=== PATIENT | female | born 1990 | race Caucasian/White ===

== ENCOUNTER 2016-12-27 08:55 | Emergency (ER) | payer OTHER ==
[~2016-12-27] VITALS: Ht 167.6 cm; Wt 109.0 kg
[~2016-12-27 08:55] MED LIST: IBUP800T23 PO; LEXA10TA PO
[2016-12-27 09:07] VITALS: BP 144/98; PULSE 69; RESP 18; TEMP 98; O2SAT 100
[2016-12-27] MEDS ORDERED: SODIUM CHLOR 0.9% 1000 ML INJ 1,000 ML IV ONE (09:38)
[2016-12-27] MEDS ORDERED: PROCHLORPERAZINE INJ 10 MG/2 ML VIAL IVP ONE (09:45)
[2016-12-27] MEDS ORDERED: MORPHINE SULFATE 4 MG/ML INJ IV PUSH ONE ×2 (09:45→13:00)
[2016-12-27] MEDS ORDERED: diphenhydrAMINE HCL 50 MG/ML VIAL IVP ONE (09:45)
--- NOTE | 2016-12-27 09:48 | PD ---
HPI Chief Complaint: Headache Time Seen by Provider: 09:31 Travel History International Travel<30 days: No Contact w/Intl Traveler<30days: No Traveled to known affect area: No History of Present Illness HPI The patient is a 26-year-old female who presents emergency department for headache. Patient states she awakened this morning at 6 AM with a headache that is located in the right temporal area, sharp, stabbing, radiates to the right ear down the right neck, is associated with mild nausea. The patient denies any subsequent vomiting. She does complain of blurry vision mostly on the left thigh as well as some numbness and tingling to the left aspect of the face. The patient states when she awakened this morning she had difficulty speaking and difficulty waking up her . The patient states she then became somewhat panicked and presents to the emergency department. The patient denies any weakness or numbness of the left arm or left leg, however, does note the numbness continues of left aspect of the face. The patient denies any difficulty with neck movements and denies any subsequent fever, chills, or sweats. The patient does have a history of anxiety and depression. The patient states she does have a history of migraines since she was a teenager, would occur approximately every 3 months with her menstrual cycle, but has not been a problem as of recently. [facility] Past Medical History Anxiety: Yes Depression: Yes Migraines: Yes Tetanus Vaccination: < 5 Years Influenza Vaccination: No ?: Not LMP: 12/15/2016 : 2 Para: 3 Miscarriage: 1 Past Surgical History Section: Yes (x 1 twins) Gynecologic Surgery: Yes (Embryo tx) Social History Alcohol Use: No (seldom) Tobacco Use: No Substance Use: No Allergies-Medications (Allergen,Severity, Reaction): Coded Allergies: Cipro (Verified Allergy, Severe, Nausea/Vomiting, 12/27/16) [place] (Verified Allergy, Severe, EMESIS, 12/27/16) Reported Meds & Prescriptions Reported Meds & Active Scripts Active No Active Prescriptions or Reported Medications Review of Systems Except as stated in HPI: all other systems reviewed are Neg General / Constitutional: No: Fever HENT: Positive: Headaches, Lightheadedness, Neck Pain, No: Neck Stiffness Cardiovascular: No: Chest Pain or Discomfort Respiratory: No: Shortness of Breath Gastrointestinal: Positive: Nausea, No: Vomiting, Abdominal Pain Neurologic: Positive: Headache, Paresthesia, Sensory Disturbance, No: Change in Mentation Physical Exam Narrative GENERAL: Awake, alert, pleasant 26 year-old female appears her stated age and appears somewhat anxious. The patient was initially examined in a darkened room. SKIN: Warm and dry. HEAD: Atraumatic. Normocephalic. EYES: Pupils equal and round. Pupils are 5 mm bilateral and reactive. EOMs are intact. Patient is able to see fingers at a distance of 2 feet without difficulty. ENT: No nasal bleeding or discharge. Mucous membranes pink and moist. NECK: Trachea midline. No JVD. No meningeal signs. CARDIOVASCULAR: Regular rate and rhythm. No murmur appreciated. RESPIRATORY: No accessory muscle use. Clear to auscultation. Breath sounds equal bilaterally. GASTROINTESTINAL: Abdomen soft, non-tender, nondistended. Hepatic and splenic margins not palpable. MUSCULOSKELETAL: No obvious deformities. No clubbing. No cyanosis. No edema. NEUROLOGICAL: Awake and alert. Sensation is symmetric bilaterally in the V1, V2 , V3 distribution, however, decreased to light touch over the V2 and V3 distribution. No drift of the upper or lower extremities. Alert and oriented 4. PSYCHIATRIC: Anxious, insight and judgment appear normal. Data Data Last Documented VS Vital Signs Date Time Temp Pulse Resp B/P Pulse Ox O2 Delivery O2 Flow Rate FiO2 12/27/16 11:20 64 16 Room Air 12/27/16 11:05 111/65 100 12/27/16 09:07 98.0 Orders Basic Metabolic Panel (Bmp) (12/27/16 09:38) Ct Brain W/O Iv Contrast(Rout) (12/27/16 09:38) Ecg Monitoring (12/27/16 09:38) Iv Access Insert/Monitor (12/27/16 09:38) Oximetry (12/27/16 09:38) Sodium Chloride 0.9% Flush (Ns Flush) (12/27/16 09:45) Prochlorperazine Inj (Compazine Inj) (12/27/16 09:45) Diphenhydramine Inj (Benadryl Inj) (12/27/16 09:45) Sodium Chlor 0.9% 1000 Ml Inj (Ns 1000 M (12/27/16 09:38) Morphine Inj (Morphine Inj) (12/27/16 09:45) Mri Brain W&W/O Contrast (12/27/16 ) Mrv Brain W/Wo Contrast (12/27/16 ) Complete Blood Count With Diff (12/27/16 09:38) Act Partial Throm Time (Ptt) (12/27/16 09:38) Prothrombin Time / Inr (Pt) (12/27/16 09:38) Ed Urine Pregnancytest Poc (12/27/16 10:11) Ketorolac Inj (Toradol Inj) (12/27/16 12:45) Morphine Inj (Morphine Inj) (12/27/16 13:00) Ondansetron Inj (Zofran Inj) (12/27/16 13:00) Labs Laboratory Tests Test 12/27/16 10:25 White Blood Count 6.1 TH/MM3 Red Blood Count 5.11 MIL/MM3 Hemoglobin 13.5 GM/DL Hematocrit 40.5 % Mean Corpuscular Volume 79.1 FL Mean Corpuscular Hemoglobin 26.4 PG Mean Corpuscular Hemoglobin 33.3 % Concent Red Cell Distribution Width 13.8 % Platelet Count 310 TH/MM3 Mean Platelet Volume 8.3 FL Neutrophils (%) (Auto) 50.9 % Lymphocytes (%) (Auto) 34.8 % Monocytes (%) (Auto) 7.9 % Eosinophils (%) (Auto) 3.8 % Basophils (%) (Auto) 2.6 % Neutrophils # (Auto) 3.1 TH/MM3 Lymphocytes # (Auto) 2.1 TH/MM3 Monocytes # (Auto) 0.5 TH/MM3 Eosinophils # (Auto) 0.2 TH/MM3 Basophils # (Auto) 0.2 TH/MM3 CBC Comment DIFF FINAL Differential Comment Prothrombin Time 10.4 SEC Prothromb Time International 0.9 RATIO Ratio Activated Partial 26.5 SEC Thromboplast Time Sodium Level 142 MEQ/L Potassium Level 4.3 MEQ/L Chloride Level 106 MEQ/L Carbon Dioxide Level 28.2 MEQ/L Anion Gap 8 MEQ/L Blood Urea Nitrogen 16 MG/DL Creatinine 1.10 MG/DL Estimat Glomerular Filtration 60 ML/MIN Rate Random Glucose 103 MG/DL Calcium Level 8.7 MG/DL MDM Medical Decision Making Medical Screen Exam Complete: Yes Emergency Medical Condition: Yes Medical Record Reviewed: Yes Interpretation(s) Laboratory Tests Test 12/27/16 10:25 White Blood Count 6.1 TH/MM3 Red Blood Count 5.11 MIL/MM3 Hemoglobin 13.5 GM/DL Hematocrit 40.5 % Mean Corpuscular Volume 79.1 FL Mean Corpuscular Hemoglobin 26.4 PG Mean Corpuscular Hemoglobin 33.3 % Concent Red Cell Distribution Width 13.8 % Platelet Count 310 TH/MM3 Mean Platelet Volume 8.3 FL Neutrophils (%) (Auto) 50.9 % Lymphocytes (%) (Auto) 34.8 % Monocytes (%) (Auto) 7.9 % Eosinophils (%) (Auto) 3.8 % Basophils (%) (Auto) 2.6 % Neutrophils # (Auto) 3.1 TH/MM3 Lymphocytes # (Auto) 2.1 TH/MM3 Monocytes # (Auto) 0.5 TH/MM3 Eosinophils # (Auto) 0.2 TH/MM3 Basophils # (Auto) 0.2 TH/MM3 CBC Comment DIFF FINAL Differential Comment Prothrombin Time 10.4 SEC Prothromb Time International 0.9 RATIO Ratio Activated Partial 26.5 SEC Thromboplast Time Sodium Level 142 MEQ/L Potassium Level 4.3 MEQ/L Chloride Level 106 MEQ/L Carbon Dioxide Level 28.2 MEQ/L Anion Gap 8 MEQ/L Blood Urea Nitrogen 16 MG/DL Creatinine 1.10 MG/DL Estimat Glomerular Filtration 60 ML/MIN Rate Random Glucose 103 MG/DL Calcium Level 8.7 MG/DL MRI the brain reveals negative MRI of the brain. No etiology for the patient's headaches. No evidence for sinus thrombosis. CT of the brain reveals no acute disease. MRV is negative for thrombosis. Etiology for headache is not apparent. Differential Diagnosis Differential diagnosis includes complicated migraine, intracranial hemorrhage, intracranial tumor, venous sinus thrombosis, dural thrombosis, carotid dissection, tension headache, anxiety. Narrative Course IV was established, labs are drawn and sent, and the patient was placed on cardiac telemetry monitoring and continuous pulse oximetry monitoring. The patient was administered morphine, Compazine, Benadryl, and IV fluids. CT of the brain was ordered to rule out intracranial hemorrhage. MRI/MRV was ordered to rule out venous sinus thrombosis. Bedside UA test was negative. CT of the brain was negative. The patient was reevaluated at 11:05 AM, her headache had resolved and most of the numbness on the left face and left hand had resolved. MRI/MRV are negative, patient was reevaluated, she was asymptomatic. The patient is advised to follow-up with neurology, return if symptoms worsen or progress. Diagnosis Primary Impression: Complicated migraine Patient Instructions: General Instructions Additional Instructions: Please provide the patient a copy of her CT results, MRI results, and lab results at discharge. Follow-up with neurology. Return if symptoms worsen or progress. Med/Other Pt SpecificInfo: Prescription(s) given Scripts Bnrrocfsgx-Inbydggzltrqi-Uxymjkfu (Fioricet)50-300-40 Mg Cap1 Cap PO Q4H PRN ( HEADACHE) #12 CAP Ref 0 Prov:Sukh Canela MD 12/27/16 Disposition: 01 DISCHARGE HOME Condition: Stable Sukh Canela MD Dec 27, 2016 09:48
[2016-12-27 10:00] VITALS: BP 113/57; PULSE 63; RESP 16; O2SAT 97; O2SAT 99
[2016-12-27] MEDS: SODIUM CHLORIDE 0.9% FLUSH 5 ML FLUSH IVF PRN ×2 (10:28→14:00)
[2016-12-27 10:36] LABS: AUTOMATED NEUTROPHIL # 3.1 TH/MM3 (1.8-7.7); BASOPHIL # 0.2 TH/MM3 (0-0.2); BASOPHIL % 2.6 % (0.0-2.0); EOSINOPHIL # 0.2 TH/MM3 (0-0.4); EOSINOPHIL % 3.8 % (0.0-4.0); HEMATOCRIT 40.5 % (35.0-46.0); HEMO FLAGS DIFF FINAL; LYMPH % 34.8 % (9.0-44.0); LYMPHOCYTE # 2.1 TH/MM3 (1.0-4.8); MEAN CELL VOLUME 79.1 FL (80.0-100.0); MEAN CORPUSCULAR HEMOGLOBIN 26.4 PG (27.0-34.0); MEAN CORPUSCULAR HGB CONC 33.3 % (32.0-36.0); MONO % 7.9 % (0.0-8.0); NEUT % 50.9 % (16.0-70.0); PLATELET COUNT 310 TH/MM3 (150-450); RED BLOOD COUNT 5.11 MIL/MM3 (4.00-5.30); RED CELL DISTRIBUTION WIDTH 13.8 % (11.6-17.2); WHITE BLOOD COUNT 6.1 TH/MM3 (4.0-11.0)
[2016-12-27 10:41] LABS: POTASSIUM 4.3 MEQ/L (3.5-5.1)
[2016-12-27 10:45] LABS: BICARBONATE 28.2 MEQ/L (21.0-32.0)
[2016-12-27 10:47] LABS: APTT (PATIENT) 26.5 SEC (24.3-30.1); INTERNATIONAL NORMALIZED RATIO 0.9 RATIO; PROTHROMBIN TIME - PATIENT 10.4 SEC (9.8-11.6)
--- NOTE | 2016-12-27 10:56 | RADHPO ---
EXAM DATE/TIME: 12/27/2016 10:34 [facility] COMPARISON: No previous studies available for comparison. INDICATIONS : New onset right sided headache this morning, with left facial and upper extremity numbness. History o f migraine headaches. RADIATION DOSE: 58.93 CTDIvol (mGy) MEDICAL HISTORY : None SURGICAL HISTORY : section. ENCOUNTER: Initial ACUITY: 1 day PAIN SCALE: 8/10 LOCATION: Right cranial TECHNIQUE: Multiple contiguous axial images were obtained of the head. Using automated exposure control and adj ustment of the mA and/or kV according to patient size, radiation dose was kept as low as reasonably a chievable to obtain optimal diagnostic quality images. FINDINGS: CEREBRUM: The ventricles are normal for age. No evidence of midline shift, mass lesion, hemorrhage or acute in farction. No extra-axial fluid collections are seen. POSTERIOR FOSSA: The cerebellum and brainstem are intact. The 4th ventricle is midline. The cerebellopontine angle i s unremarkable. EXTRACRANIAL: The visualized portion of the orbits is intact. SKULL: The calvaria is intact. No evidence of skull fracture. CONCLUSION: No acute disease. Bradford Jesus MD on December 27, 2016 at 10:52 Board Certified Radiologist. This report was verified electronically.
[2016-12-27 11:05] VITALS: BP 111/65; PULSE 68; RESP 16; O2SAT 100
[2016-12-27 12:15] VITALS: BP 114/63; PULSE 62; RESP 16
[2016-12-27] MEDS ORDERED: KETOROLAC TROMETHAMINE 30 MG/ML (IVP) VIAL IV PUSH ONE (12:45)
[2016-12-27] MEDS ORDERED: ONDANSETRON HCL 4 MG/2 ML VIAL IV PUSH ONE (13:00)
--- NOTE | 2016-12-27 13:06 | RADHPO ---
EXAM DATE/TIME: 12/27/2016 12:19 [facility] COMPARISON: No previous studies available for comparison. INDICATIONS : Cephalgia. CONTRAST: 20 cc Omniscan (gadodiamide) IV MEDICAL HISTORY : None. SURGICAL HISTORY : section. ENCOUNTER: Initial ACUITY: 1 day PAIN SCORE: 8/10 LOCATION: head TECHNIQUE: Multiplanar, multisequence MRI of the brain was performed both prior to and following the administration of paramagnetic contrast. FINDINGS: CEREBRUM: The ventricles are normal for age. No evidence of midline shift, mass lesion, hemorrha ge or acute infarction. No extraaxial fluid collections are seen. The pituitary gland and suprasell ar cistern are normal in configuration. WHITE MATTER: No significant signal abnormalities are seen in the white matter. POSTERIOR FOSSA: The cerebellum and brainstem are intact. The 4th ventricle is midline. The cere bellopontine angle is unremarkable. The cerebellar tonsils are normal in position. DIFFUSION IMAGING: No focal areas of restricted diffusion are seen. No evidence of acute infarct ion. EXTRACRANIAL: The visualized portions of the orbits and paranasal sinuses are unremarkable. POST-CONTRAST: No abnormal areas of parenchymal or dural enhancement. No evidence of blood-brain barrier breakdown. CONCLUSION: Negative MRI of the brain. I do not see an etiology for this patient's headaches. There is no evidence for sinus thrombosis. Cristóbal Banegas MD FACR on December 27, 2016 at 13:02 Board Certified Radiologist. This report was verified electronically.
--- NOTE | 2016-12-27 13:15 | RADHPO ---
EXAM DATE/TIME: 12/27/2016 12:19 COMPARISON: No previous studies available for comparison. INDICATIONS : Cephalgia. Thrombosis CONTRAST: 20 cc Omniscan (gadodiamide) IV MEDICAL HISTORY : None. SURGICAL HISTORY : section. ENCOUNTER: Initial ACUITY: 1 day PAIN SCORE: 8/10 LOCATION: head FINDINGS: There is no evidence of venous thrombosis. CONCLUSION: Negative for thrombosis. Etiology for headache is not apparent. Cristóbal Banegas MD FACR on December 27, 2016 at 13:13 Board Certified Radiologist. This report was verified electronically.
[2016-12-27] MEDS ORDERED: BUTA1CAP PO (13:27)
[2016-12-27] MEDS ORDERED: GADODIAMIDE PF 287 MG/ML 20 ML VIAL (for RAD MRI) IV ONE (14:04)
[2016-12-27 15:00] VITALS: RESP 16
[2016-12-27 15:10] VITALS: BP 111/68
== END 2016-12-27 15:10 | disposition home or self-care (01) ==
LOC: PHED 08:55
DX: G43.109 Migraine with aura, not intractable, without status migrainosus (principal); R11.0 Nausea
CPT/HCPCS: 70450; 70546; 70553; 80048; 84703; 85025; 85610; 85730; 96361; 96374; 96375; 96376; 99285; A9579; J0780; J1200; J1885; J2270; J2405; J7030

== ENCOUNTER 2017-04-08 13:26 | Emergency (ER) | payer OTHER ==
[~2017-04-08] VITALS: Ht 165.1 cm; Wt 100.0 kg
[~2017-04-08 13:26] MED LIST changes: +BUTA1CAP PO; -IBUP800T23 PO; -LEXA10TA PO
[2017-04-08 13:28] VITALS: BP 166/82; PULSE 112; RESP 24; TEMP 98.1; O2SAT 99
--- NOTE | 2017-04-08 14:11 | PD ---
HPI Chief Complaint: Related Problem Time Seen by Provider: 14:11 Travel History International Travel<30 days: No Contact w/Intl Traveler<30days: No Traveled to known affect area: No History of Present Illness HPI 26 YO F presents to the ED for evaluation of a 4 day history of vaginal bleeding. LMP 01/15. Patient states that she took a urine test that was "faintly positive" this week. States the first 2 day bleeding was very light however yesterday she states she used 4-5 tampons in 1 hour. States that the bleeding has tapered off during the course of the day. Also complains of right lower quadrant abdominal pain which she attributes to a ovarian cyst. States that she has been lightheaded and short of breath which she thinks is secondary to blood loss or May be anxiety. Denies vaginal trauma, vaginal discharge. History of metromenorrhagia. One single male partner. PFSH Past Medical History Anxiety: Yes Depression: Yes Migraines: Yes ?: : 2 Para: 3 Miscarriage: 1 Past Surgical History Section: Yes (x 1 twins) Gynecologic Surgery: Yes (Embryo tx) Social History Alcohol Use: No (seldom) Tobacco Use: No Substance Use: No Allergies-Medications (Allergen,Severity, Reaction): Coded Allergies: Cipro (Verified Allergy, Severe, Nausea/Vomiting, 12/27/16) [place] (Verified Allergy, Severe, EMESIS, 12/27/16) Reported Meds & Prescriptions Reported Meds & Active Scripts Active Pyridium (Phenazopyridine HCl) 100 Mg Tab 100 Mg PO Q8H PRN Bactrim DS (Sulfamethoxazole-Trimethoprim) 800-160 Mg Tab 1 Tab PO BID Fioricet (Olmzeomyje-Uwhgiftecqpoi-Uftovszx) 50-300-40 Mg Cap 1 Cap PO Q4H PRN Reported Midol Maximum Strength Menstral (Oyzmcruzcjdpc-Flpwjmnh-Eywuuwuqaf) 500-60-15 mg Tab 2 Tab PO Q6HR PRN Lexapro (Escitalopram Oxalate) 10 Mg Tab 10 Mg PO DAILY Review of Systems Except as stated in HPI: all other systems reviewed are Neg Physical Exam Narrative GENERAL: Well-nourished, well-developed white female in no acute distress. SKIN: Focused skin assessment warm/dry. HEAD: Normocephalic. EYES: No scleral icterus. No injection or drainage. NECK: Supple, trachea midline. No JVD or lymphadenopathy. CARDIOVASCULAR: Regular rate and rhythm without murmurs, gallops, or rubs. RESPIRATORY: Breath sounds equal bilaterally. No accessory muscle use. GASTROINTESTINAL: Abdomen soft, nondistended. Tender to palpation on the right lower quadrant. ++suprapubic TTP. GENITOURINARY: Normal external genitalia without lesions or erythema. Vaginal vault with moderate blood. No drainage. Cervical os was closed, small amount of blood. No cervical motion tenderness. Uterus nontender and nonenlarged. Bilateral adnexa nontender without masses. MUSCULOSKELETAL: No cyanosis, or edema. BACK: Nontender without obvious deformity. No CVA tenderness. Data Data Last Documented VS Vital Signs Date Time Temp Pulse Resp B/P Pulse Ox O2 Delivery O2 Flow Rate FiO2 04/08/17 13:28 98.1 112 24 166/82 99 Room Air Orders Ed Urine Pregnancytest Poc (04/08/17 14:12) Beta Hcg (Quant/Titer) (04/08/17 14:32) Complete Blood Count With Diff (04/08/17 14:32) Gc And Chlamydia Pcr (04/08/17 14:32) Wet Prep Profile (04/08/17 14:32) Urinalysis - C+S If Indicated (04/08/17 14:32) Urine Culture (04/08/17 15:20) Labs Laboratory Tests Test 04/08/17 04/08/17 15:20 16:05 White Blood Count 8.5 TH/MM3 Red Blood Count 4.79 MIL/MM3 Hemoglobin 12.5 GM/DL Hematocrit 38.1 % Mean Corpuscular Volume 79.5 FL Mean Corpuscular Hemoglobin 26.2 PG Mean Corpuscular Hemoglobin 32.9 % Concent Red Cell Distribution Width 14.5 % Platelet Count 324 TH/MM3 Mean Platelet Volume 8.1 FL Neutrophils (%) (Auto) 62.9 % Lymphocytes (%) (Auto) 27.4 % Monocytes (%) (Auto) 7.1 % Eosinophils (%) (Auto) 2.0 % Basophils (%) (Auto) 0.6 % Neutrophils # (Auto) 5.3 TH/MM3 Lymphocytes # (Auto) 2.3 TH/MM3 Monocytes # (Auto) 0.6 TH/MM3 Eosinophils # (Auto) 0.2 TH/MM3 Basophils # (Auto) 0.1 TH/MM3 CBC Comment DIFF FINAL Differential Comment Urine Color LIGHT-RED Urine Turbidity HAZY Urine pH 5.5 Urine Specific [place] 1.018 Urine Protein 30 mg/dL Urine Glucose (UA) NEG mg/dL Urine Ketones NEG mg/dL Urine Occult Blood LARGE Urine Nitrite NEG Urine Bilirubin NEG Urine Urobilinogen LESS THAN 2.0 MG/DL Urine Leukocyte Esterase MOD Urine RBC /hpf Urine WBC 15 /hpf Microscopic Urinalysis Comment CULTURE INDICATED Human Chorionic Gonadotropin, LESS THAN 1 Quant MIU/ML Clue Cells (Wet Prep) NONE SEEN Vaginal Trichomonas (Wet Prep) NONE SEEN Vaginal Yeast (Wet Prep) NONE SEEN MDM Medical Decision Making Medical Screen Exam Complete: Yes Emergency Medical Condition: Yes Differential Diagnosis Ectopic versus ruptured ectopic versus ovarian torsion versus dysmenorrhea versus other Narrative Course 26 YO F presents to the ED for evaluation of a 4 day history of vaginal bleeding. LMP 01/15. Patient states that she took a urine test that was "faintly positive" this week. States the first 2 day bleeding was very light however yesterday she states she used 4-5 tampons in 1 hour. Complains of right lower quadrant abdominal pain which she attributes to a ovarian cyst. States that she has been lightheaded and short of breath. Denies vaginal trauma , vaginal discharge. History of metromenorrhagia. One single male partner. Vitals reviewed. Physical exam reveals + RLQ and suprapubic pubic tenderness to palpation. Urine test negative. Beta Quant 1. UA leukocyte esterase positive, 15 wbc's noted. CBC shows no leukocytosis or anemia. Wet prep negative. This is abnormal uterine bleeding and cystitis. Patient was prescribed Bactrim DS twice a day 3 days short course of Pyridium. She is instructed to rest, hydrate, take the antibiotics as prescribed, follow up with the assistant spa manager. She indicated understanding of the instructions and is agreeable to the care plan. She is stable and discharged home. Diagnosis Primary Impression: Dysmenorrhea Additional Impressions: Abnormal uterine bleeding (AUB) Urinary tract infection Qualified Code: N30.01 - Acute cystitis with hematuria Cystitis Referrals: [facility] Patient Instructions: Dysmenorrhea (ED), General Instructions, Urinary Tract Infection in Women (ED) Additional Instructions: Rest, hydrate. Take all antibiotics as prescribed, even if your symptoms resolve. Pyridium as prescribed, as needed for bladder spasms. Follow-up with assistant spa manager as discussed. Return to the ED for any urgent or emergent medical condition. Med/Other Pt SpecificInfo: Prescription(s) given Scripts Phenazopyridine (Pyridium)100 Mg [id number] Mg PO Q8H PRN (DYSURIA) #6 TAB Ref 0 Prov:Lucila Benton MD 04/08/17 Sulfamethoxazole-Trimethoprim (Bactrim DS)800-160 Mg Tab1 Tab PO BID #6 TAB Ref 0 Prov:Lucila Benton MD 04/08/17 Disposition: 01 DISCHARGE HOME Condition: Stable Alicia Jauregui Apr 08, 2017 14:11
[2017-04-08] MEDS ORDERED: LEXA10TA PO (15:03)
[2017-04-08] MEDS ORDERED: MIDOTAB PO (15:03)
[2017-04-08 16:00] LABS: AUTOMATED NEUTROPHIL # 5.3 TH/MM3 (1.8-7.7); BASOPHIL # 0.1 TH/MM3 (0-0.2); BASOPHIL % 0.6 % (0.0-2.0); EOSINOPHIL # 0.2 TH/MM3 (0-0.4); HEMATOCRIT 38.1 % (35.0-46.0); HEMO FLAGS DIFF FINAL; LYMPH % 27.4 % (9.0-44.0); LYMPHOCYTE # 2.3 TH/MM3 (1.0-4.8); MEAN CELL VOLUME 79.5 FL (80.0-100.0); MEAN CORPUSCULAR HEMOGLOBIN 26.2 PG (27.0-34.0); MEAN CORPUSCULAR HGB CONC 32.9 % (32.0-36.0); MONO % 7.1 % (0.0-8.0); NEUT % 62.9 % (16.0-70.0); PLATELET COUNT 324 TH/MM3 (150-450); RED BLOOD COUNT 4.79 MIL/MM3 (4.00-5.30); RED CELL DISTRIBUTION WIDTH 14.5 % (11.6-17.2); WHITE BLOOD COUNT 8.5 TH/MM3 (4.0-11.0)
[2017-04-08 16:13] LABS: BLOOD, URINE LARGE (NEG); COMMENT (UR) CULTURE INDICATED; CULTURE IF INDICATED CULTURE INDICATED; GLUCOSE,URINE NEG (NEG); KETONE, URINE NEG (NEG); NITRITE,URINE NEG (NEG); PH, URINE 5.5 (5.0-8.5)
[2017-04-08 16:14] LABS: URINE COLOR LIGHT-RED (YELLW/STRAW)
[2017-04-08 16:25] LABS: BETA HCG QUANT LESS THAN 1 MIU/ML (0-5)
[2017-04-08] MEDS ORDERED: PHEN0.4T PO (16:51)
[2017-04-08] MEDS ORDERED: BACT800T5 PO (16:51)
[2017-04-08 22:43] LABS: CHLAMYDIA PCR NOT DETECTED (NOT DETECT); NEISSERIA PCR NOT DETECTED (NOT DETECT)
== END 2017-04-08 17:17 | disposition home or self-care (01) ==
LOC: NEPD 13:26
DX: N94.6 Dysmenorrhea, unspecified (principal); N93.9 Abnormal uterine and vaginal bleeding, unspecified; N30.01 Acute cystitis with hematuria; R10.31 Right lower quadrant pain; R42 Dizziness and giddiness; R06.02 Shortness of breath; Z86.59 Personal history of other mental and behavioral disorders; Z86.69 Personal history of other diseases of the nervous system and sense organs
CPT/HCPCS: 81001; 84702; 84703; 85025; 87086; 87210; 87491; 87591